=== PATIENT | female | born 1980 | race Caucasian/White ===

== ENCOUNTER 2022-12-26 13:40 | Emergency (ER) | payer OTHER, MEDICAID, SELFPAY ==
[2022-12-26 13:43] VITALS: BP 192/94; PULSE 110; RESP 22; TEMP 36.8; O2SAT 98; BMI 33.6
--- NOTE | 2022-12-26 14:28 | ED.PSYCH ---
HPI - Psych General Chief Complaint: Psychiatric Symptoms Stated Complaint: mental health crisis Time Seen by Provider: 12/26/22 13:53 Source: patient Mode of arrival: Ambulatory History of Present Illness HPI Narrative: Patient presents for issues with homelessness. Patient is living in her car with CPS and child custody issues ongoing. Patient reports feeling very depressed and requesting resources to help her. She takes citalopram daily. Denies suicidal thoughts or thoughts of self harm. Related Data Allergies Allergy/AdvReac Type Severity Reaction Status Date / Time No Known Drug Allergies Allergy Verified 12/26/22 13:42 Review of Systems Review of Systems Narrative: CONSTITUTIONAL- Denies: fever, chills, fatigue HEENT- Denies: sore throat, nosebleed, vision changes RESPIRATORY- Denies: shortness of breath, cough, wheezing CARDIAC- Denies: chest pain, edema, orthopnea GI- Denies: abdominal pain, nausea, vomiting, constipation, diarrhea - Denies: frequency, dysuria, hematuria, flank pain MSK- Denies: extremity pain, extremity swelling, joint pain, joint swelling SKIN- Denies: rash, itching, burn, swelling NEUROLOGICAL- Denies: headache, numbness, weakness, dizziness PSYCHIATRIC-reports: Depression, stress Denies: anxiety, suicidal ideation, homicidal ideation Patient History Social History Smoking Status: Current every day smoker Smoking Status: Current every day smoker tobacco type: cigarettes alcohol intake frequency: a few times a week Substance Use Type: marijuana Exam Initial Vital Signs Initial Vital Signs: Vital Signs Temperature 98.3 F 12/26/22 13:43 Pulse Rate 110 H 12/26/22 13:43 Respiratory Rate 22 12/26/22 13:43 Blood Pressure 192/94 H 12/26/22 13:43 Pulse Oximetry 98 12/26/22 13:43 Oxygen Delivery Method Room Air 12/26/22 13:43 Const: Awake, alert, no acute distress, nontoxic appearing Eyes: PERRL, EOMI, conjunctiva normal ENT: Atraumatic, dentition normal, mucous membranes moist Cardiac: regular rate, regular rhythm RESP: unlabored, clear bilaterally, no wheezing GI: Atraumatic, soft, nontender, nondistended, no rebound, no guarding MSK: Atraumatic, full range of motion, pulses equal Skin: Warm, Dry, intact, no rashes Neuro: AO x3, CN II-XII grossly intact, moves all extremities Psych: affect normal, depressed mood, not suicidal, not homicidal Course Course Course Narrative: Well-appearing patient with depression and homelessness, requesting resources to help her. She denies wanting to harm herself, denies wanting to harm anyone else. Patient is on antidepressants already, and patient's worsenign depression is very likely secondary to numerous life stressors such as child custody issues, homelessness. Patient states she has refills available of her citalopram. Social work spoke with patient and provided resources for patient. At this time no acute medical complaint present to indicate need for labs or imaging. Orders Ordered: ED Orders 12/26/22 13:50 Consult to V[employer] EV[employer]ORATION OPERATOR - Design Engineering Specialist Stat Vital Signs Vital signs: Vital Signs - 8 hr 12/26/22 13:43 Temperature 98.3 F Pulse Rate 110 H Respiratory Rate 22 Blood Pressure 192/94 H Pulse Oximetry 98 Oxygen Delivery Method Room Air Discharge Plan Departure Patient Disposition: Home Clinical Impression: Depression, Other social stressor, Homelessness Instructions: Depression Stand Alone Forms: Patient Portal/API
--- NOTE | 2022-12-26 14:45 | CM.SWNOTE ---
ED CUSTOMS EXAMINER Note Patient is 42 y/o female who presents to ED via POV due to concern for significant life stressors. Patient endorses she is living in her car, she is working with CPS and family court in regards to the custody of her children and is feeling very depressed. CUSTOMS EXAMINER enters triage to meet with patient. Patient presents as tearful, coherent, communicative and cooperative. Patient presents as A/Ox4. Patient denies SI and HI. Patient endorses she is living in her car, does not feel comfortable in shelters. Patient endorses she is court ordered to do UAs, complete a MH evaluation, ERIKA evaluation and establish a safe housing situation. Patient endorses difficulty finding MH provider and has been on waiting lists. Patient endorses she provides UAs at [facility] in [place] and has a ERIKA eval tomorrow at [facility]. CUSTOMS EXAMINER provides patient with lists of MH providers that accept her insurance, resources for housing, basic need resources and crisis contacts. CUSTOMS EXAMINER encourages patient to go to [facility] today. CUSTOMS EXAMINER encourages patient to take steps one at a time to accomplish her requirements. Patient endorses she feels safe to d/c to home. Patient discharges to community. Patient to f/u with resources provided. SRINI Salomon
[2022-12-26 14:57] VITALS: BP 139/91; PULSE 93; O2SAT 98
== END 2022-12-26 15:01 | disposition home or self-care (01) ==
PROVIDERS: Emergency Provider Emergency Medicine
DX: F32.A Depression, unspecified (principal); Z65.9 Problem related to unspecified psychosocial circumstances; Z59.00 Homelessness unspecified
CPT/HCPCS: 99283

== ENCOUNTER 2023-09-15 21:52 | Emergency (ER) | payer MEDICAID, SELFPAY ==
[2023-09-15 22:04] VITALS: BP 177/88; PULSE 116; RESP 18; TEMP 36.6; O2SAT 97; BMI 37.2
== END 2023-09-15 23:11 | disposition left against medical advice (07) ==
PROVIDERS: Emergency Provider Emergency Medicine
DX: R42 Dizziness and giddiness (principal); Z53.21 Procedure and treatment not carried out due to patient leaving prior to being seen by health care provider
CPT/HCPCS: 99281